=== PATIENT | male | born 1965 | race Caucasian/White ===

== ENCOUNTER → 2017-03-19 | Day surgery (SDC) | payer OTHER ==
[2017-03-18 07:49] VITALS: Ht 182.9 cm; Wt 130.9 kg
[~2017-03-19] VITALS: Ht 182.9 cm; Wt 130.9 kg
[~2017-03-19] MED LIST: 500ML BSS 0.3ML EPI 1:1000PF IRRIG ONE; ACETAMINOPHEN 325 MG TAB PO PRN; ALLO300T2 PO; AMLO-114 PO; AMVISC PLUS 0.8ML SYRINGE INT OCU ONE; ATROPINE SULFATE 0.1 MG/ML 5ML SYR IV PRN; BSS FLUSH ONE; BUPR75TA20 PO; CYCLOPENTOLATE HCL 1% OP SOLN PER DROP CHARGE OPL SCH; DOCU-94 PO; EpHEDrine SULFATE INJ 50 MG/ML AMP IV PRN; EpINEphrine INJ 1MG/ML AMP 1 MG/ML AMP ONE; GATIFLOXACIN OP SOLN PER DROP CHARGE OPL SCH; KETOROLAC 0.5% OP SOLN PER DROP CHARGE OPL SCH; LACTATED RINGER'S 1000ML 500 ML IV SCH; LIDOCAINE 3.5% OPH GEL PER APPLICATION CHARGE ONE; LIDOCAINE HCL 1% MPF 2 ML VIAL ONE; LISI20TA3 PO; MELO7.5T5 PO; METO25TA56 PO; MIDAZOLAM HCL 1 MG/ML 2ML VIAL ONE; MIRT45TA PO; OCUCOAT 1 ML SOLN IO ONE; ONDANSETRON INJ 2 MG/ML 2 ML VIAL IV PRN; OXCA300T PO; PATIENT'S ALLERGY INFO NEEDS ENTERED SCH; PHENYLEPHRINE HCL 10% OP SOLN PER DROP CHARGE OPL SCH; PHENYLEPHRINE HCL 2.5% OP SOLN PER DROP CHARGE OPL SCH; POVIDONE-IODINE OP SOLN 30 ML BTL ONE; PROPARACAINE 0.5% OP SOLN PER DROP CHARGE OPL SCH; RANI300T2 PO; TOBRAMYCIN/DEXAMETHASONE OPH OINT PER APPLN CHARGE ONE; TROPICAMIDE 1% OP SOLN PER DROP CHARGE OPL SCH
[2017-03-19] MEDS: PHENYLEPHRINE HCL 2.5% OP SOLN PER DROP CHARGE OPL SCH ×2 (10:05→10:12)
[2017-03-19] MEDS: TROPICAMIDE 1% OP SOLN PER DROP CHARGE OPL SCH ×2 (10:07→10:13)
[2017-03-19] MEDS: CYCLOPENTOLATE HCL 1% OP SOLN PER DROP CHARGE OPL SCH ×2 (10:08→10:14)
[2017-03-19] MEDS: KETOROLAC 0.5% OP SOLN PER DROP CHARGE OPL SCH ×2 (10:09→10:15)
[2017-03-19] MEDS: GATIFLOXACIN OP SOLN PER DROP CHARGE OPL SCH ×2 (10:10→10:17)
--- NOTE | 2017-03-19 11:04 | History & Physical Bridge - [place] ---
H&P Re-Evaluation Bridge Note: I have examined the patient, reviewed the History & Physical and in the interval since the performance of the History & Physical I have noted the following changes of clinical significance: No changes noted
--- NOTE | 2017-03-19 11:35 | [facility] Operative Report ---
Operative Report Date of Service Mar 19, 2017. Operative Report 1. PREOPERATIVE DIAGNOSIS: Cataract of the left eye. 2. POSTOPERATIVE DIAGNOSIS: Same. 3. PROCEDURE: Phacoemulsification with intraocular lens implantation of the left eye. SURGEON: Dr. Kunal Onofre. ANESTHESIA: Topical Lidocaine gel, 1% Non- Preserved intracameral Lidocaine, and monitored intravenous sedation. INDICATIONS FOR THE PROCEDURE: The patient is a 52 - year-old male with a history of cataract of the left eye causing significant visual impairment. The details of the proposed procedure were explained to the patient who asked appropriate questions and following discussion of all risks, benefits and alternatives agreed to have the procedure done. 4. OPERATION AND FINDINGS: DESCRIPTION OF PROCEDURE: After informed consent was obtained, the patient was brought to the Operating Room at the [facility]. The patient was placed in a supine position and then the left eye was prepped and draped in the usual sterile fashion for intraocular surgery. A drop of topical Lidocaine gel was placed in the operative eye. A wire lid speculum was then placed in the fornices. A corneal paracentesis was then created temporally. The Non-Preserved Lidocaine was then instilled into the anterior chamber. The anterior chamber was then pressurized with viscoelastic. A 2.0 mm clear corneal incision was then created temporally. A cystotome was inserted into the anterior chamber and used to create a tear in the anterior lens capsule. This capsular tear was then used to create a small flap and the flap was dragged in a counterclockwise direction in order to create a continuous curvilinear capsulorrhexis. Hydrodissection was accomplished with balanced salt solution. Phacoemulsification of the lens nucleus was then performed in a standard [id number] technique. The phaco time was 18 seconds with an average power of 11 %. The remaining cortical material was removed using irrigation aspiration. The capsular bag was then filled with viscoelastic. A Bausch & Lomb MI60L +21.5 diopters lens was then loaded into the injector and injected into the capsular bag. The remaining viscoelastic was removed with the irrigation aspiration handpiece. The wound was hydrated and then checked and found to be watertight. The intraocular pressure was checked and found to be adequate. The wire lid speculum was removed and the patient's face was cleaned and dried. TobraDex ointment was placed in the inferior fornix. The patient was discharged to the Recovery Room having tolerated the procedure well. There were no complications. The patient will be seen tomorrow in the office for follow-up. I attest to the content of the Intraoperative Record and any orders documented therein. Any exceptions are noted below.
--- NOTE | 2017-03-19 11:36 | Discharge Instructions-SurgCtr ---
Discharge Instructions Date of Service Mar 19, 2017. Visit Reason for Visit: Cataract Left Eye Discharge Discharge Diagnosis / Problem: cataract Discharge Goals Goal(s): Improve function Activity Recommendations Activity Limitations: per Instructions/Follow-up section Anesthesia . Post Anesthesia Instructions: If you have had General Anesthesia or IV Sedation: * Do not drive today. * Resume driving when surgeon permits. * Do not make important decisions or sign legal documents today. * Call surgeon for: 1. Temperature elevations greater than 101 degrees F. 2. Uncontrollable pain. 3. Excessive bleeding. 4. Persistent nausea and vomiting. 5. Medication intolerance (nausea, vomiting or rash). * For nausea and vomiting use only clear liquids such as: tea, soda, bouillon until nausea subsides, then gradually increase diet as tolerated. * If you have any concerns or questions, call your surgeon's office. If physician is unavailable and it is an emergency, call 911 or go to the nearest emergency room. . Diet Recommendations Home Diet: resume previous diet Procedures Procedures Performed: Left Cataract Phacoemulsification With Intraocular Lens Implant Pending Studies Studies pending at discharge: no Medical Emergencies . Who to Call and When: Medical Emergencies: If at any time you feel your situation is an emergency, please call 911 immediately. . Non-Emergent Contact Non-Emergency issues call your: Grinder Machine Knife Setter . . "Provider Documentation" section prepared by Kunal Onofre. .
[2017-03-19 11:42] VITALS: TEMP 36.5
--- NOTE | 2017-03-19 11:56 | Anesthesia Progress Nt - [facility] ---
Anesthesia Post Op Note Date & Time Mar 19, 2017 at 11:56 Vital Signs Pain Intensity: 0 Vital Signs Past 12 Hours Date Time Temp Pulse Resp B/P (MAP) Pulse Ox O2 Delivery O2 Flow Rate FiO2 03/19/17 11:42 36.5 59 18 100/68 (79) 95 Room Air 03/19/17 09:59 37.1 58 20 114/78 (90) 97 Room Air Notes Mental Status: alert / awake / arousable, participated in evaluation Pt Amnestic to Procedure: Yes Nausea / Vomiting: adequately controlled Pain: adequately controlled Airway Patency, RR, SpO2: stable & adequate BP & HR: stable & adequate Hydration State: stable & adequate Anesthetic Complications: no major complications apparent
[2017-03-19 12:05] VITALS: BP 119/86; PULSE 55; O2SAT 100
== END | disposition home or self-care (01) ==
LOC: X.SURG 09:42
PROVIDERS: ATTEND Ophthalmology
DX: H26.9 Unspecified cataract (principal); I10 Essential (primary) hypertension; F41.9 Anxiety disorder, unspecified; G47.33 Obstructive sleep apnea (adult) (pediatric); Z98.42 Cataract extraction status, left eye; Z98.890 Other specified postprocedural states; Z87.891 Personal history of nicotine dependence; E66.9 Obesity, unspecified; Z68.39 Body mass index [BMI] 39.0-39.9, adult

== ENCOUNTER → 2017-06-06 | Day surgery (SDC) | payer OTHER ==
[2017-06-04 14:09] VITALS: Ht 182.9 cm; Wt 130.9 kg
[~2017-06-06] VITALS: Ht 182.9 cm; Wt 130.9 kg
[~2017-06-06] MED LIST changes: +ALBUTEROL HFA 8 GM INHALER INH ONE; +BUPIVACAINE 0.5 % 5 MG/1 ML PF 10ML VIAL ONE; -CYCLOPENTOLATE HCL 1% OP SOLN PER DROP CHARGE OPL SCH; -GATIFLOXACIN OP SOLN PER DROP CHARGE OPL SCH; -KETOROLAC 0.5% OP SOLN PER DROP CHARGE OPL SCH; +LIDOCAINE HCL 2% LOCAL 20 ML VIAL ONE; -ONDANSETRON INJ 2 MG/ML 2 ML VIAL IV PRN; -PATIENT'S ALLERGY INFO NEEDS ENTERED SCH; -PHENYLEPHRINE HCL 10% OP SOLN PER DROP CHARGE OPL SCH; -PHENYLEPHRINE HCL 2.5% OP SOLN PER DROP CHARGE OPL SCH; -PROPARACAINE 0.5% OP SOLN PER DROP CHARGE OPL SCH; +PROPARACAINE 0.5% OP SOLN PER DROP CHARGE OPR SCH; +PROPOFOL IV EMULSION 10 MG/ML 20 ML VIAL IV ONE; -TROPICAMIDE 1% OP SOLN PER DROP CHARGE OPL SCH
[2017-06-06] MEDS: KETOROLAC 0.5% OP SOLN PER DROP CHARGE OPR SCH ×2 (10:39→10:45)
[2017-06-06] MEDS: CYCLOPENTOLATE HCL 1% OP SOLN PER DROP CHARGE OPR SCH ×2 (10:40→10:45)
[2017-06-06] MEDS: TROPICAMIDE 1% OP SOLN PER DROP CHARGE OPR SCH ×2 (10:40→10:45)
[2017-06-06] MEDS: PHENYLEPHRINE HCL 2.5% OP SOLN PER DROP CHARGE OPR SCH ×2 (10:40→10:44)
[2017-06-06] MEDS: PILOCARPINE HCL 2% OP SOLN PER DROP CHARGE OPR SCH ×2 (10:41→10:52)
[2017-06-06] MEDS: GATIFLOXACIN OP SOLN PER DROP CHARGE OPR SCH ×2 (10:41→10:51)
--- NOTE | 2017-06-06 10:51 | [facility] Operative Report ---
Operative Report Date of Service Jun 06, 2017. Operative Report 1. PREOPERATIVE DIAGNOSIS: Aphakia, right eye 2. POSTOPERATIVE DIAGNOSIS: Same. 3. PROCEDURE: Secondary intra-ocular lens implantation, right eye SURGEON: Dr. Kunal Onofre. ANESTHESIA: Topical Lidocaine gel, 1% Non- Preserved intracameral Lidocaine, an retro bulbar block consisting of 2% lidocaine mixed equally with 0.5% bupivacaine, and monitored intravenous sedation. 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 The details of the proposed procedure were explained to the patient who asked appropriate questions and following discussion of all risks, benefits and alternatives agreed to have the procedure done. 4. OPERATION AND FINDINGS: DESCRIPTION OF PROCEDURE: After informed consent was obtained, the patient was brought to the Operating Room at the [facility]. The patient was placed in a supine position and then the right eye was prepped and draped in the usual sterile fashion for intraocular surgery. A drop of topical Lidocaine gel was placed in the operative eye. The above described retrobulbar block was injected behind the right eye. A wire lid speculum was then placed in the fornices. A corneal paracentesis was then created temporally. The Non- Preserved Lidocaine was then instilled into the anterior chamber. The anterior chamber was then pressurized with viscoelastic. A 6.0 mm clear corneal incision was then created temporally. A peripheral iridotomy was created superiorly with the 20 gauge vitrector. Over a sheetz glide the Bausch and Lomb [id number] +17.0 was inserted into the anterior chamber. The wound was closed with 3 10-0 nylon sutures. The knots were buried. The remaining viscoelastic was removed with the irrigation aspiration handpiece. The wound was hydrated and then checked and found to be watertight. The intraocular pressure was checked and found to be adequate. The wire lid speculum was removed and the patient's face was cleaned and dried. TobraDex ointment was placed in the inferior fornix and a pressure patch was applied. The patient was discharged to the Recovery Room having tolerated the procedure well. There were no complications. The patient will be seen tomorrow in the office for follow-up. I attest to the content of the Intraoperative Record and any orders documented therein. Any exceptions are noted below.
[2017-06-06 12:18] VITALS: TEMP 36.3
--- NOTE | 2017-06-06 12:18 | Discharge Instructions-SurgCtr ---
Discharge Instructions Date of Service Jun 06, 2017. Visit Reason for Visit: Cataract Right Eye Discharge Discharge Diagnosis / Problem: aphakia Discharge Goals Goal(s): Improve function Activity Recommendations Activity Limitations: per Instructions/Follow-up section Anesthesia . Post Anesthesia Instructions: If you have had General Anesthesia or IV Sedation: * Do not drive today. * Resume driving when surgeon permits. * Do not make important decisions or sign legal documents today. * Call surgeon for: 1. Temperature elevations greater than 101 degrees F. 2. Uncontrollable pain. 3. Excessive bleeding. 4. Persistent nausea and vomiting. 5. Medication intolerance (nausea, vomiting or rash). * For nausea and vomiting use only clear liquids such as: tea, soda, bouillon until nausea subsides, then gradually increase diet as tolerated. * If you have any concerns or questions, call your surgeon's office. If physician is unavailable and it is an emergency, call 911 or go to the nearest emergency room. . Diet Recommendations Home Diet: resume previous diet Procedures Procedures Performed: Right Eye Secondary Lens Implant Pending Studies Studies pending at discharge: no Medical Emergencies . Who to Call and When: Medical Emergencies: If at any time you feel your situation is an emergency, please call 911 immediately. . Non-Emergent Contact Non-Emergency issues call your: Sign Erector . . "Provider Documentation" section prepared by Kunal Onofre. .
[2017-06-06 12:38] VITALS: BP 142/99; PULSE 60; O2SAT 96
--- NOTE | 2017-06-06 12:43 | Anesthesiology Progress Note ---
Anesthesia Post Op Note Date & Time Jun 06, 2017 at 12:43 Vital Signs Pain Intensity: 0 Vital Signs Past 12 Hours Date Time Temp Pulse Resp B/P (MAP) Pulse Ox O2 Delivery O2 Flow Rate FiO2 06/06/17 12:38 60 16 142/99 (113) 96 06/06/17 12:18 36.3 57 14 138/95 (109) 99 Room Air 06/06/17 10:35 36.5 59 20 125/85 (98) 96 Room Air Notes Mental Status: alert / awake / arousable, participated in evaluation Nausea / Vomiting: adequately controlled Pain: adequately controlled Airway Patency, RR, SpO2: stable & adequate BP & HR: stable & adequate Hydration State: stable & adequate Anesthetic Complications: no major complications apparent
== END | disposition home or self-care (01) ==
LOC: X.SURG 08:40
PROVIDERS: ATTEND Ophthalmology
DX: H27.01 Aphakia, right eye (principal); H26.9 Unspecified cataract; I10 Essential (primary) hypertension; K21.9 Gastro-esophageal reflux disease without esophagitis; E66.9 Obesity, unspecified; Z87.891 Personal history of nicotine dependence; Z98.42 Cataract extraction status, left eye; Z88.8 Allergy status to other drugs, medicaments and biological substances; G47.33 Obstructive sleep apnea (adult) (pediatric)

== ENCOUNTER 2018-09-10 05:05 | Inpatient (IN) ==
--- NOTE | 2018-09-04 09:36 | History & Physical Report ---
Date of Service September 04, 2018 Assessment & Plan (1) Osteoarthritis of right hip: Schedule Right UNRULY for 09.10.18. All potential risks, benefits, complications, alternatives, and rehab have been discussed with the patient and he wishes to proceed. Plan for ASA 81 mg BID x 4 wks post op for DVT prophylaxis. Will return to [facility] after discharge. History of Present Illness Chief Complaint: right hip pain Primary Care Provider: [facility] This is a patient who is an inmate at [facility]. He has been treated conservatively for right hip DJD for a long period of time. He has failed all conservative management and is now being set up for a right UNRULY. Allergies Allergy/AdvReac Type Severity Reaction Status Date / Time blue dye Allergy Unknown UNKNOWN? Verified 06/06/17 10:32 duloxetine Allergy Unknown UNKNOWN? Verified 06/06/17 10:32 Home Medications Home Medications Medication Instructions Recorded Confirmed Type allopurinol 300 mg PO DAILY 06/06/18 06/06/18 History amlodipine 10 mg PO DAILY 06/06/18 06/06/18 History bupropion HCl 2 tab PO BID 06/06/18 06/06/18 History cetirizine 10 mg PO DAILY 06/06/18 06/06/18 History docusate sodium 100 mg PO DAILY 06/06/18 06/06/18 History lisinopril 20 mg PO DAILY 06/06/18 06/06/18 History metoprolol tartrate 25 mg PO DAILY 06/06/18 06/06/18 History mirtazapine 30 mg PO HS 06/06/18 06/06/18 History nabumetone 750 mg PO BID 06/06/18 06/06/18 History oxcarbazepine 300 mg PO HS 06/06/18 06/06/18 History ranitidine HCl 300 mg PO BID 06/06/18 06/06/18 History Past Med/Surg History Social History Current Living Situation Comment: [facility] Smoking Status: Unknown if ever smoked Physical Exam Constitutional: well developed and well nourished; no acute distress ENMT: external ear and nose normal, oropharynx normal Neck: trachea midline, no thyromegaly Respiratory: normal respiratory effort, lungs clear to auscultation Cardiovascular: Rate/Rhythm: regular rate and regular rhythm Gastrointestinal (Abdomen): normal bowel sounds, soft, nontender, no hepatosplenomegaly Musculoskeletal: Hip: + limited ROM of hip (right hip: internal/external rotation/flexion), + joint line tenderness (right groin) and + DEE test positive (right hip); no deformity, no skin erythema and no ecchymosis Skin: no rashes, warm and dry Neurologic: normal touch/pain/proprioception Psychiatric: A+Ox3, euthymic affect Lymphatic: no cervical or axillary lymphadenopathy
--- NOTE | 2018-09-05 14:46 | Anesthesiology Consultation ---
Date of Service September 05, 2018 Assessment & Plan (1) Encounter for pre-operative examination: Pre-op labs not completed. Surgeon's office made aware that if not done by DOS will be drawn AM DOS, and based on results anesthesia will determine if appropriate to proceed. Chart Review Chart Review: Acceptable Risk for Surgery (pending labs WNL AM DOS) and Patient NOT seen in Pre Admission Testing History Surgery Operation Date: 07/03/18 09:40 Proposed Procedures p Right Total Hip Arthroplasty - Eh Odonnell MD Operation Date: 09/10/18 07:30 Proposed Procedures p Right Total Hip Arthroplasty - Cabrera Lopez DO Height/Weight Height: 6 ft Weight: 113.398 kg Allergies Allergy/AdvReac Type Severity Reaction Status Date / Time blue dye Allergy Unknown UNKNOWN? Verified 06/06/17 10:32 duloxetine Allergy Unknown UNKNOWN? Verified 06/06/17 10:32 Medications Home Medications Medication Instructions Recorded Confirmed Last Taken allopurinol 300 mg PO DAILY 06/06/18 09/05/18 Unknown amlodipine 10 mg PO DAILY 06/06/18 09/05/18 Unknown bupropion HCl 2 tab PO BID 06/06/18 09/05/18 Unknown cetirizine 10 mg PO DAILY 06/06/18 09/05/18 Unknown docusate sodium 100 mg PO DAILY 06/06/18 09/05/18 Unknown lisinopril 20 mg PO DAILY 06/06/18 09/05/18 Unknown metoprolol tartrate 25 mg PO DAILY 06/06/18 09/05/18 Unknown mirtazapine 30 mg PO HS 06/06/18 09/05/18 Unknown nabumetone 750 mg PO BID 06/06/18 09/05/18 Unknown oxcarbazepine 300 mg PO HS 06/06/18 09/05/18 Unknown ranitidine HCl 300 mg PO BID 06/06/18 09/05/18 Unknown Past Medical History Medical History Alcohol related disorder Amphetamine abuse Cataract Chronic back pain LOW BACK PAIN GERD (gastroesophageal reflux disease) Hypertension Osteoarthritis Post traumatic stress disorder Rhinitis Past Surgical History Surgical History History of eye surgery 2005 Social History Smoking Status: Current some day smoker tobacco type: cigarettes Smoking cigarettes per day: 10 CIG DAILY Testing Electrocardiogram Date: 09/03/18 Findings: + NSR @ (84bpm) RBBB. Chest X-Ray Date: 09/04/18 Findings: + NAD
[2018-09-10 05:59] LABS: Basophils # (auto) 0.04 K/uL (0-0.2); Basophils % (auto) 0.7 %; Eosinophils # (auto) 0.21 K/uL (0-0.5); Eosinophils % (auto) 3.6 %; Hematocrit (blood only) 41.2 % (42-52); Hemoglobin 13.6 g/dL (14.0-18.0); Immature Granulocytes # (auto) 0.03 K/uL (0.00-0.02); Immature Granulocytes % (auto) 0.5 %; Lymphocytes # (auto) 1.93 K/uL (1.2-3.4); Lymphocytes % (auto) 32.9 %; Mean Corpuscular Volume 89.8 fL (80-100); Mean Platelet Volume 8.9 fL (7.4-10.4); Monocytes % (auto) 15.3 %; Neutrophils # (auto) 2.76 K/uL (1.4-6.5); Platelet Count 229 K/uL (130-400); RDW Coefficient of Variation 13.8 % (11.5-14.5); RDW Standard Deviation 45.1 fL (36.4-46.3); Red Blood Count 4.59 M/uL (4.7-6.1); White Blood Count 5.87 K/uL (4.8-10.8)
[2018-09-10] MEDS ORDERED: dexAMETHasone 4 MG TAB PO SCH (06:00)
[2018-09-10] MEDS ORDERED: CeleBREX 200 MG CAP PO SCH (06:00)
[2018-09-10] MEDS ORDERED: LR 15ML/HR IV SCH (06:00)
[2018-09-10] MEDS ORDERED: GABAPENTIN 900 MG DOSE PO SCH (06:00)
[2018-09-10] MEDS ORDERED: CEFAZOLIN 3000MG 72.5 ML IV SCH (06:00)
[2018-09-10] MEDS ORDERED: ACETAMINOPHEN 500 MG TAB PO SCH (06:00)
[2018-09-10] MEDS ORDERED: METOCLOPRAMIDE HCL 10 MG TABLET PO SCH (06:00)
[2018-09-10] MEDS ORDERED: FAMOTIDINE 20 MG TAB PO SCH (06:00)
[2018-09-10] MEDS ORDERED: ROPIVACAINE 0.5% HCL/PF 150 MG, BUPIVACAINE 0.5% MPF 30 ML, EPINEPHrine 30MG/30ML (OR U... INFIL SCH (06:00)
[2018-09-10 06:11] LABS: Partial Thromboplastin Ratio 0.9; Partial Thromboplastin Time 24.4 Seconds (21.0-31.0); Prothrombin Time 10.4 Seconds (9.0-12.0)
[2018-09-10 06:15] LABS: BUN Creatinine Ratio 16.4 (10-20); Calcium 8.9 mg/dl (8.5-10.1); Creatinine Clr Calc Pharmacy 104.2 ml/min; Est GFR (African American) 87.4; Est GFR (Non-African American) 75.4; Potassium 4.8 mmol/L (3.5-5.1)
[2018-09-10] MEDS ORDERED: BUPIVACAINE 0.5 % 5 MG/1 ML PF 10ML VIAL ONE (06:21)
[2018-09-10 06:26] LABS: Estimated Average Glucose 105 mg/dl; Hemoglobin A1C 5.3 % (4.5-5.6)
[2018-09-10] MEDS ORDERED: LIDOCAINE HCL 2% 2 ML VIAL/AMP(20MG/ML) INFIL ONE (07:08)
[2018-09-10] MEDS ORDERED: ONDANSETRON INJ 2 MG/ML 2 ML VIAL ONE (07:08)
[2018-09-10] MEDS ORDERED: DEXAMETHASONE SOD INJ 4 MG/ML VIAL ONE (07:08)
[2018-09-10] MEDS ORDERED: PROPOFOL IV EMULSION 10 MG/ML 20 ML VIAL IV ONE (07:08)
[2018-09-10] MEDS ORDERED: fentaNYL citrate 100 MCG/2 ML VIAL ONE ×3 (07:09→11:23)
[2018-09-10] MEDS ORDERED: MIDAZOLAM HCL 1 MG/ML 2ML VIAL ONE (07:09)
[2018-09-10] MEDS ORDERED: ORTHO JOINT ANESTHETIC ONE (07:23)
[2018-09-10] MEDS ORDERED: BACITRACIN INJ 50,000 UNIT VIAL ONE (07:23)
--- NOTE | 2018-09-10 07:41 | History & Physical Bridge Note ---
Date of Service September 10, 2018 History & Physical Bridge Note I have examined the patient, reviewed the History & Physical and in the interval since the performance of the History & Physical I have noted the following changes of clinical significance: no changes noted
[2018-09-10] MEDS ORDERED: HYDROmorphone INJ 2 MG/ML SYR/VIAL ONE (08:35)
[2018-09-10] MEDS ORDERED: METOPROLOL TARTRATE 1 MG/ML VIAL IV ONE (08:55)
[2018-09-10] MEDS ORDERED: HydrALAZINE HCL 20 MG/ML VIAL ONE (09:09)
[2018-09-10] MEDS ORDERED: NEOSTIGMINE METHYLSULFATE 5 MG/5 ML SYR ONE (09:23)
[2018-09-10] MEDS ORDERED: SUCCINYLCHOLINE CHLORIDE 20 MG/ML 10 ML VIAL ONE (09:23)
[2018-09-10] MEDS ORDERED: ROCURONIUM BROMIDE 10 MG/ML 5 ML VIAL ONE (09:23)
[2018-09-10] MEDS ORDERED: GLYCOPYRROLATE 0.2 MG/ML VIAL ONE (09:23)
[2018-09-10] MEDS ORDERED: ePHEDrine sulfate 50 MG/ML AMP IV PRN (10:47)
[2018-09-10] MEDS ORDERED: PROMETHAZINE HCL 12.5 MG in SODIUM CHLORIDE 0.9% 50 ML IV PRN (10:47)
[2018-09-10] MEDS ORDERED: FLUMAZENIL 0.1 MG/1 ML 10 ML VIAL IV PRN (10:47)
[2018-09-10] MEDS ORDERED: ONDANSETRON INJ 2 MG/ML 2 ML VIAL IV PRN (10:47)
[2018-09-10] MEDS ORDERED: ATROPINE SULFATE 0.1 MG/ML 10ML SYR IV PRN (10:47)
[2018-09-10] MEDS ORDERED: NALOXONE HCL 0.4 MG/1 ML VIAL/CARP IV PRN ×2 (10:47→13:20)
[2018-09-10] MEDS ORDERED: LABETALOL HCL IV 5 MG/ML 20ML IV PRN (10:47)
--- NOTE | 2018-09-10 11:32 | Post Operative Brief Note ---
Immediate Post Op Note v1 Date of Surgery September 10, 2018 Pre & Post Diagnosis Operation Date: 07/03/18 09:40 <No data on this case meets the specified criteria> Operation Date: 09/10/18 07:30 Pre-Op Diagnosis: Right hip degenerative joint disease, right hip osteoarthritis Post-Op Diagnosis: Right hip degenerative joint disease, right hip osteoarthritis Procedure Operation Date: 07/03/18 09:40 <No data on this case meets the specified criteria> Operation Date: 09/10/18 07:30 Actual Procedures p Right Total Hip Arthroplasty(Right) - Cabrera Lopez DO Surgeon Cabrera Lopez DO Hearing Impaired Teacher None Estimated Blood Loss 50 Findings Consistent with Post-Op Diagnosis Specimens Bone and tissue right hip spinal Drains Hemovac Drain (10fr) Anesthesia Type Spinal MAC Complications none Disposition Accompanied Patient To Recovery: Yes Disposition: Recovery Room
[2018-09-10] MEDS ORDERED: HYDROmorphone INJ 1 MG/ML SYRINGE ONE (11:34)
[2018-09-10] MEDS: HYDROmorphone INJ 1 MG/ML SYRINGE IV PRN ×4 (11:36→12:25)
--- NOTE | 2018-09-10 11:59 | XRay Report ---
XR hip 1V RT w pelvis CLINICAL HISTORY: IN PACU - A/P PELVIS and LATERAL HIP COMPARISON: None. DISCUSSION: Anatomic alignment posttotal right hip arthroplasty. Could contact between metallic prost hetic in an Bone. No evidence for acetabular protrusion. IMPRESSION: Anatomic alignment posttotal right hip arthroplasty. The above report was generated using voice recognition software. It may contain grammatical, syntax or spelling errors. Electronically signed by: Preston Blackwell M.D. 09/10/2018 11:58 AM
--- NOTE | 2018-09-10 12:14 | Anesthesiology Progress Note ---
Date of Service September 10, 2018 Anesthesia Post Procedure Vital Signs Vital Signs: Temp Pulse Pulse Resp BP Pulse Ox 09/10/18 12:00 87 16 165/88 H 100 09/10/18 11:50 59 L 18 141/78 H 100 09/10/18 11:40 64 16 127/90 100 09/10/18 11:30 36 C L 94 H 16 170/122 H 100 09/10/18 05:47 36.6 C 53 L 18 145/107 H 97 Pain Intensity Right Hip: Pain Intensity: 5 Transfer of Care Handoff Completed per policy Notes Mental Status: alert / awake / arousable Patient Amnestic to Procedure: Yes Nausea / Vomiting: adequately controlled Pain: adequately controlled Airway Patency, RR, SpO2: stable & adequate BP & HR: stable & adequate Hydration State: stable & adequate Anesthetic Complications: no major complications apparent
[2018-09-10] MEDS ORDERED: BISACODYL 10 MG SUPP PR PRN (13:20)
[2018-09-10] MEDS ORDERED: MAGNESIUM HYDROXIDE SUSP 30 ML UDC PO PRN (13:20)
[2018-09-10] MEDS ORDERED: ALUMINUM/MAGNESIUM SUSP 30 ML UDC PO PRN (13:20)
[2018-09-10] MEDS: ACETAMINOPHEN 500 MG TAB PO SCH ×2 (13:40→20:22)
[2018-09-10] MEDS: SODIUM CHLORIDE 0.9% 1000ML 1,000 ML IV SCH ×2 (13:41→23:43)
--- NOTE | 2018-09-10 14:08 | Consultation ---
Date of Consultation September 10, 2018 Assessment & Plan (1) Osteoarthritis of right hip: POD #[address] Lopez EBL 50ml tolerated procedure well pain/wound per ortho activities and therapy as directed by ortho incentive spirometry follow h/h (2) Hypertension: blood pressure stable continue metoprolol, lisinopril, amlodipine (3) GERD (gastroesophageal reflux disease): continue ranitidine (4) Chronic back pain: continue nambuetone (5) Post traumatic stress disorder: continue wellbutrin, remeron mood stable (6) DVT prophylaxis: SCDS, TEDS, ASA BID per ortho Disposition: per primary Follow up: Provider at [facility] upon discharge Patient was seen and examined in collaboration with Dr. Jackson, please see addendum Starting 09/11/18 patient will be under the care of Dr. Cummings Thank you for this consultation. We will follow the patient with you during their hospital stay. You can reach a member of the [facility] Team 17/09 via pager @ [phone]. Supervising Physician Co-Signing Physician Notes I, Dr. Elder Jackson, have seen and examined the patient with physician logistics assistant and agree with the assessment and plan as above and would like to comment that This is a 53 year old male with Right Total Hip Arthroplasty on 09/10/18 from orthopedic service for PREOPERATIVE DIAGNOSES of Right hip degenerative joint disease and Right hip osteoarthritis. medicine consulted for medical management as consulting service On exam General: patient comfortable and eating lunch Lungs: clear to auscultation bilaterally Heart: regular rate, and rhythm Abdomen: soft, nontender, bowel sounds present Hip: right hip wound vac draining serosangunious fluids Legs: in SCDs , able to wiggle toes bilaterally blood pressure noted to be high after the surgery, will expect blood pressure to come down during the day when further removed from anesthesia. continue metoprolol, lisinopril, amlodipine for blood pressure control My colleague Dr. Cummings will be following the patient as medicine consult starting on 09/11/18 History of Present Illness Requesting Physician: Dr. Loepz Reason for Consultation: Postop medical management Attending Physician: Cabrera Lopez, DO History of Present Illness This is a 53-year-old male incarcerated at [facility] who has a significant PMH of HTN, Gout, GERD, OADJD, Chronic back pain, PTSD who presents to [facility] for elective R UNRULY by Dr. Lopez. Pt tolerated procedure well. 2 guards at bedside. Complaining of incision hip discomfort. Denies any Dizziness, syncope, f/c/s, chest pain, sob, palpitations, cough, n/v/d, abdominal pain, dysuria, hematuria, increased urg/freq with urination. Had fluid post op but not solid food. Denies post op N/V. Offers no complaints or concerns. Allergies Allergy/AdvReac Type Severity Reaction Status Date / Time blue dye Allergy Unknown UNKNOWN? Verified 09/10/18 05:34 duloxetine Allergy Unknown UNKNOWN? Verified 09/10/18 05:34 Home Medications Home Medications Medication Instructions Recorded Confirmed Type allopurinol 300 mg PO DAILY 06/06/18 09/05/18 History amlodipine 10 mg PO DAILY 06/06/18 09/05/18 History bupropion HCl 2 tab PO BID 06/06/18 09/05/18 History cetirizine 10 mg PO DAILY 06/06/18 09/05/18 History docusate sodium 100 mg PO DAILY 06/06/18 09/05/18 History lisinopril 20 mg PO DAILY 06/06/18 09/05/18 History metoprolol tartrate 25 mg PO DAILY 06/06/18 09/05/18 History mirtazapine 30 mg PO HS 06/06/18 09/05/18 History nabumetone 750 mg PO BID 06/06/18 09/05/18 History ranitidine HCl 300 mg PO BID 06/06/18 09/05/18 History Patient History Medical History Amphetamine abuse Alcohol related disorder Post traumatic stress disorder Cataract Hypertension GERD (gastroesophageal reflux disease) Chronic back pain LOW BACK PAIN Rhinitis Osteoarthritis Surgical History History of eye surgery 2006 Family History Mother Cancer Throat Father Hypertension Social History Preferred Language: Belarusian Communication Ability: Effective marital status: Unknown Current Living Situation: Other Current Living Situation Comment: [facility] Smoking Status: Former smoker Tobacco Type: cigarettes Hx Alcohol Use: Yes Alcohol type: beer Alcohol Intake Frequency Comment: hx of ETOH ABUSE prior to alf Hx Substance Use: No Review of Systems Review of Systems: As noted per HPI, 10 systems reviewed and negative unless noted above. Physical Exam Physical Exam: Gen: WD/WN, M, obese,, NAD, sitting up in bed, pleasant, conversing easily Head: Normocephalic, Atraumatic Eyes: Sclera normal, no conjunctival injection, PERRLA, EOMI ENT: Gross hearing intact, normal pharynx, mucous membranes moist Neck: supple, no adenopathy, No JVD, no bruit, Resp: Clear to auscultation b/l, no wheeze, rales, rhonchi. Normal insp/exp effort, no accessory muscle use CV: Regular rate, regular rhythm, no murmur, rub, gallop, or ectopy Abd: obese abd, +BS x 4, soft, nontender, nondistended Musculoskeletal: moves extremities active rom x 3, RLE not assessed given UNRULY, strength intact, good qa tech strength Extremities: trace edema bilaterally, SCDS/TEDS in place Skin: warm, moist, no rash, negative turgor, cap refill < 2sec Neuro: Alert and oriented x 3, speech normal, good mood/affect, cran nerve 2-12 intact grossly : deferred Results & Data Vital Signs (Past 12 Hours) Vital Signs Temp Pulse Pulse Resp BP Pulse Ox 09/10/18 13:00 61 14 135/75 97 09/10/18 12:45 62 16 160/73 H 98 09/10/18 12:40 58 L 19 130/73 93 09/10/18 12:30 36.7 C 58 L 14 128/98 94 09/10/18 12:20 61 14 135/95 98 09/10/18 12:10 59 L 16 135/79 93 09/10/18 12:00 87 16 165/88 H 94 09/10/18 11:50 59 L 18 141/78 H 100 09/10/18 11:40 64 16 127/90 100 09/10/18 11:30 36 C L 94 H 16 170/122 H 100 09/10/18 05:47 36.6 C 53 L 18 145/107 H 97 Laboratory Results Pre op Labs: H/H 13.6 and 41.2, PLT 229 A1C 5.3 BMP: Na 143, K 4.3, BUN 18, Cr 1.11, glucose 92 Diagnostic Findings R Hip Xray: IMPRESSION: Anatomic alignment posttotal right hip arthroplasty. ECG Rate (beats per minute): 84 Rhythm: normal sinus Findings: + RBBB
--- NOTE | 2018-09-10 14:26 | Operative Report ---
DATE OF OPERATION: 09/10/2018 PREOPERATIVE DIAGNOSES: 1. Right hip degenerative joint disease. 2. Right hip osteoarthritis. POSTOPERATIVE DIAGNOSES: 1. Right hip degenerative joint disease. 2. Right hip osteoarthritis. PROCEDURES: Right total hip arthroplasty using a Hitchins Accolade II, 132-degree neck size #6 stem with a Trident X3 10-degree polyethylene insert, 36 mm inner diameter, Trident PSL DAWN cluster acetabular shell, size 62 mm, two 6.5 mm locking screws and a Biolox delta ceramic femoral head measuring 36 mm x 0 mm neck length. SURGEON: Cabrera Lopez DO SEMICONDUCTOR PROCESSING TECHNICIAN: None. ANESTHESIA: Spinal monitored anesthesia care with local. SPECIMENS: Bone and tissue, right hip. DRAINS: Hemovac x2. COMPLICATIONS: None. BLOOD LOSS: 50 mL. PERTINENT HISTORY: This is a 53-year-old alf inmate with severe chronic and worsening right hip pain. He attempted and failed conservative management for the last 2 years with modification of activities, anti-inflammatories, physician directed home exercises, physical therapy and use of an assistive device. Radiographs demonstrate complete bone on bone arthropathy with marginal osteophytes, subchondral sclerosis and subchondral cysts. The patient then scheduled for surgery as indicated. DESCRIPTION OF PROCEDURE: The patient was taken to the operating suite and placed supine on the Operating Room table after identification of the consent and identification of the proper operative site the patient was sedated. The patient had previously received a spinal epidural anesthetic. The patient was then placed in the left lateral decubitus position with the affected side up and Stulberg positioning device then used to maintain lateral position of the patient. All bony prominences were properly padded and protected. Axillary roll was placed as standard and the leg lengths were determined to be essentially equal and then the right hip was then sterilely prepped and draped in the usual fashion. 10-blade scalpel incision was made laterally over the greater trochanter. The incision was deepened through the subcutaneous tissue and meticulous hemostasis with electrocautery. Further deepening of the wound through the layer of the fascia was performed with electrocautery and iliotibial band was then incised with electrocautery. Next, Charnley retractor was placed bother anteriorly and posteriorly at the level of the gluteus tendon. Next, electrocautery was used to make an incision in the vastus lateralis and then sweep was made toward the anterior aspect of the patient along the course of the femoral neck and head. Abductor split was then completed. The gluteus minimus and capsule were then incised and then soft tissue was dissected anteriorly. Next as the soft tissue was dissected anteriorly the lesser trochanter was clearly identified and hip was dislocated with relative ease. Hypertrophic osteophytes were noted circumferentially. The hip joint was noted to be noticeably tight. Next the sagittal saw was used to resect the proximal portion of the femoral neck and head approximately one fingerbreadth proximal to the lesser trochanter. Head was then removed and next the labrum was excised from the acetabulum with a 27 blade scalpel and long forceps. Next the wound was irrigated with pulsatile lavage and the pulvinar was then excised from the acetabulum. Appropriate retractors were placed anteriorly superiorly and posteriorly. Next initial acetabular reamer was placed 44 mm medialized to the medial wall and then sequential reaming was performed to size 56 mm. Trial cage was then placed and noted to be stable with excellent fit. Next the wound was irrigated with pulsatile lavage with bacitracin additive and 62 mm Hitchins trident PSL cup was impacted and then two 6.5 mm screws were used to stabilize the acetabular shell. Next X3 poly 36 mm was impacted into the shell. Lap sponge was placed over to protect it. Next, attention was turned toward the proximal femur. Box osteotome was used to resect proximal portion of bone followed by first pass small reamer. Next, sequential broaching was performed up to size 6 and the 6 trial was placed followed by +0 36 mm trial head. Next, it was reduced and had excellent fit and feel with minimal shuck and excellent stability in all planes and range of motion. Leg lengths were restored and next all trial implants were removed. The wound was copiously irrigated with pulsatile lavage and size 6 Accolade TMZF x 132 degree final stem was impacted. Next, Biolox ceramic 36 mm head +0 neck was impacted. The construct was reduced. Range of motion was performed and noted to be completely stable with excellent range of motion, improved to greater degree than prior to surgery. Two 10 Belgian single Hemovac drains were placed exiting anterolaterally. Wound was irrigated with pulsatile lavage. Next a #5 Fiberwire suture was used to close the capsule and gluteus minimum via two small bone gunnels made with 2.4 mm drill bit in the greater trochanter. After Tycron closure was completed and noted to be stable then 10 Belgian drains were placed followed by closure of the vastus lateralis and the gluteus medius. Dilute sterile betadine was used to soak the incision for 3 minutes and was suctione and lavaged until clear. Local Orthomix was injected throughout the hip joint capsule. This was closed with #1 Vicryl sutures. Next, the iliotibial band was closed using interrupted [id number] #1 Vicryl sutures. Next, final irrigation was performed with pulsatile lavage and dermis was closed using buried interrupted 2-0 Vicryl suture. The skin was closed with skin renia. Sterile compressive dressing was applied. The patient was then placed supine and taken to recovery in stable condition. I attest to the content of the Intraoperative Record and any orders documented therein. Any exceptions are noted below. CARLOZ
[2018-09-10] MEDS: OXYCODONE HCL IR 5 MG TAB (IMMEDIATE RELEASE) PO PRN ×2 (15:53→20:20)
[2018-09-10] MEDS: CEFAZOLIN 2000MG 2,000 MG/15 ML SYR IV SCH ×2 (15:54→23:43)
[2018-09-10] MEDS: HYDROmorphone INJ 0.5 MG/0.5 ML SYR IV PRN ×2 (17:50→22:08)
[2018-09-10] MEDS: buPROPion HCl 75 MG TABLET PO SCH (20:22)
[2018-09-10] MEDS: ASPIRIN 81 MG ECTAB PO SCH (20:22)
[2018-09-10] MEDS: MIRTAZAPINE TAB 15 MG TAB PO SCH (20:22)
[2018-09-10] MEDS: SENNA 8.6 MG TAB PO SCH (20:23)
[2018-09-10] MEDS: DOCUSATE SODIUM 100 MG CAP PO SCH (20:23)
[2018-09-10] MEDS ORDERED: OXcarbazepine 150 MG TABLET PO SCH (21:00)
[2018-09-11] MEDS: OXYCODONE HCL IR 5 MG TAB (IMMEDIATE RELEASE) PO PRN ×5 (03:24→20:40)
[2018-09-11] MEDS: ACETAMINOPHEN 500 MG TAB PO SCH ×3 (05:29→20:41)
[2018-09-11] MEDS: HYDROmorphone INJ 0.5 MG/0.5 ML SYR IV PRN ×4 (05:33→23:53)
[2018-09-11] MEDS: ALLOPURINOL 300 MG TAB PO SCH ×2 (08:49→08:57)
[2018-09-11] MEDS: MULTIVITAMIN TAB PO SCH (08:49)
[2018-09-11] MEDS: DOCUSATE SODIUM 100 MG CAP PO SCH ×2 (08:50→20:42)
[2018-09-11] MEDS: AMLODIPINE BESYLATE 5 MG TAB PO SCH (08:50)
[2018-09-11] MEDS: ASPIRIN 81 MG ECTAB PO SCH ×2 (08:50→20:42)
[2018-09-11] MEDS: METOPROLOL TARTRATE 25 MG TAB PO SCH (08:50)
[2018-09-11] MEDS: LISINOPRIL 20 MG TAB PO SCH (08:51)
[2018-09-11] MEDS: CETIRIZINE HCL 10 MG TABLET PO SCH (08:51)
[2018-09-11] MEDS: buPROPion HCl 75 MG TABLET PO SCH ×2 (08:51→20:42)
[2018-09-11 08:53] LABS: Basophils # (auto) 0.01 K/uL (0-0.2); Basophils % (auto) 0.1 %; Eosinophils # (auto) 0.02 K/uL (0-0.5); Eosinophils % (auto) 0.2 %; Hematocrit (blood only) 33.6 % (42-52); Hemoglobin 11.2 g/dL (14.0-18.0); Immature Granulocytes # (auto) 0.04 K/uL (0.00-0.02); Immature Granulocytes % (auto) 0.4 %; Lymphocytes # (auto) 2.03 K/uL (1.2-3.4); Lymphocytes % (auto) 18.9 %; Mean Corpuscular Hgb Conc 33.3 g/dL (32-36); Mean Corpuscular Volume 88.4 fL (80-100); Mean Platelet Volume 9.1 fL (7.4-10.4); Monocytes # (auto) 1.99 K/uL (0.11-0.59); Monocytes % (auto) 18.5 %; Neutrophils # (auto) 6.65 K/uL (1.4-6.5); Neutrophils % (auto) 61.9 %; Platelet Count 234 K/uL (130-400); RDW Coefficient of Variation 13.7 % (11.5-14.5); RDW Standard Deviation 44.7 fL (36.4-46.3); White Blood Count 10.74 K/uL (4.8-10.8)
[2018-09-11 09:24] LABS: BUN Creatinine Ratio 16.3 (10-20); Calcium 8.4 mg/dl (8.5-10.1); Creatinine Clr Calc Pharmacy 113.4 ml/min; Est GFR (African American) 96.8; Est GFR (Non-African American) 83.5; Potassium 4.2 mmol/L (3.5-5.1)
--- NOTE | 2018-09-11 10:31 | Hospitalist Progress Note ---
Date of Service September 11, 2018 Assessment & Plan (1) Osteoarthritis of right hip: POD #[address] Lopez EBL 50ml tolerated procedure well pain/wound per ortho activities and therapy as directed by ortho incentive spirometry continue to follow h/h--yesterday 13.6/41.2 , this morning 11.2/33.6, will continue to monitor (2) Hypertension: blood pressure stable continue metoprolol, lisinopril, amlodipine (3) GERD (gastroesophageal reflux disease): continue ranitidine (4) Chronic back pain: continue nabumetone (5) Post traumatic stress disorder: continue wellbutrin, remeron mood stable (6) DVT prophylaxis: SCDS, TEDS, ASA BID per ortho Disposition: per primary Follow up: Provider at [facility] upon discharge Patient was seen and examined in collaboration with Dr. Cummings, please see addendum We will continue to follow the patient with you during their hospital stay. You can reach a member of the [facility] Hospitalist Team 17/09 via pager @ [phone]. Supervising Physician Co-Signing Physician Notes I have seen and examined the patient and have discussed the case with the provider above. I agree with the assessment and plan as stated. On my exam he states his post-op pain is controlled with medications. He is eating. He is in NAD, S1/2 heard without m/g/r, lungs were CTAB. R hip with bandage covering operative site which was c/d/i. Hemovac drain had been removed earlier today. Cont supportive care. Received lisinopril and subsequent blood pressures were on the low side. However, would cont this tomorrow as BP will start to rise again. DO Emiliano Subjective 53 yo M who is incarcerated at [facility]-- POD #[address] Lopez with PMH of HTN, Gout, GERD, OADJD, Chronic back pain, PTSD. Seen today in follow up consultation-- pt's BP was elevated yesterday post op but has been within normal range and stable since last evening ( 122/79, 119/70, 127/80). Pt has talbot catheter in place, good urine output, he has not had a bowel movement yet but is passing gas regularly. He is able to eat and drink without difficulty. He notes that he feels a bit weak and dizzy intermittently but overall that passes quickly once he is resting-- he attributes this to "having to use muscles I normally don't use to hold up my overweight body". He reports some pain of R hip and leg but denies numbness, tingling. Prior to my evaluation he was working with PT and was able to ambulate with the walker and assistance up and down the vega. Pt has been using incentive spirometer roughly once every 2 hours. He denies chest pain, SOB, cough, fevers, chills, palpitations, cough, n/v/d, abdominal pain, dysuria, hematuria. Denies additional complaints or concerns at this time. Vitals remain stable. H/H pre op: 13.6/41.2 , this morning 11.2/33.6, will continue to monitor. Review of Systems Review of Systems: As noted per HPI, 10 systems reviewed and negative unless noted above. Physical Exam Physical Exam: GENERAL: alert, obese, no distress, well nourished and well developed, sitting up in chair, pleasant, conversing easily, 2 shelter guards at bedside HEAD: Normocephalic, atraumatic EYES: PERRL, EOMI, Conjunctiva are pink and non-injected, sclera clear HEART: regular rate & rhythm, no murmurs and no gallops, no edema LUNGS: clear to auscultation bilaterally, no wheezing, rales or rhonchi ABDOMEN: obese abdomen, soft, non-tender, normal bowel sounds x 4 quadrants, no masses or organomegaly, no rebound or guarding, no CVA tenderness, no bladder distention identified and no bruits Extremities: Drain from surgical site continues to drain serosanguineous fluid, post op dressing in place, SCDS/TEDS b/l LE, trace edema b/l, moving feet and toes and good strength b/l, neurovascular intact b/l SKIN: skin color, texture, turgor are normal, no rashes or significant lesions NEURO: alert & oriented x 3 with fluent speech, no focal motor/sensory deficits : Talbot in place, deferred exam Results & Data Vital Signs (Past 12 Hours) Vital Signs Temp Pulse Resp BP Pulse Ox 09/11/18 07:23 36.5 C 79 18 127/80 98 09/11/18 04:19 36.8 C 68 18 119/70 94 09/10/18 23:36 37.4 C 80 20 122/79 96 Laboratory Results Short CBC 09/11/18 Range/Units 08:19 WBC 10.74 (4.8-10.8) K/uL Hgb 11.2 L (14.0-18.0) g/dL Hct 33.6 L (42-52) % Plt Count 234 (130-400) K/uL BMP 09/11/18 08:19 Sodium 139 Potassium 4.2 Chloride 107 Carbon Dioxide 26 BUN 17 Creatinine 1.02 Glucose 130 H Calcium 8.4 L
--- NOTE | 2018-09-11 12:04 | Orthopedic Progress Note ---
Date of Service September 11, 2018 Assessment & Plan (1) Status post right hip replacement: 53 yo male stable POD #1 s/p right UNRULY 1. Med management 2. DVT prophylaxis- ASA, SCDs 3. PT/OT 4. D/C planning- return to correctional facility Subjective Pt resting in bed, pain controlled, denies complaints Physical Exam Physical Exam: Toes mobile, N/V/I, dressing and drain in place Results & Data Vital Signs (Past 12 Hours) Vital Signs Temp Pulse Resp BP Pulse Ox 09/11/18 11:30 37.1 C 65 18 106/73 96 09/11/18 07:23 36.5 C 79 18 127/80 98 09/11/18 04:19 36.8 C 68 18 119/70 94 Laboratory Results 09/11/18 09/11/18 09/10/18 Range/Units 08:19 08:19 14:25 WBC 10.74 (4.8-10.8) K/uL RBC 3.80 L (4.7-6.1) M/uL Hgb 11.2 L (14.0-18.0) g/dL Hct 33.6 L (42-52) % MCV 88.4 (80-100) fL MCH 29.5 (25-34) pg MCHC 33.3 (32-36) g/dL RDW Std Deviation 44.7 (36.4-46.3) fL RDW Coeff of Miriam 13.7 (11.5-14.5) % Plt Count 234 (130-400) K/uL MPV 9.1 (7.4-10.4) fL Immature Gran % (Auto) 0.4 % Neut % (Auto) 61.9 % Lymph % (Auto) 18.9 % [place] % (Auto) 18.5 % Eos % (Auto) 0.2 % Baso % (Auto) 0.1 % Immature Gran # (Auto) 0.04 H (0.00-0.02) K/uL Neut # (Auto) 6.65 H (1.4-6.5) K/uL Lymph # (Auto) 2.03 (1.2-3.4) K/uL [place] # (Auto) 1.99 H (0.11-0.59) K/uL Eos # (Auto) 0.02 (0-0.5) K/uL Baso # (Auto) 0.01 (0-0.2) K/uL Sodium 139 (136-145) mmol/L Potassium 4.2 (3.5-5.1) mmol/L Chloride 107 (98-107) mmol/L Carbon Dioxide 26 (21-32) mmol/L Anion Gap 6.0 (3-11) BUN 17 (7-18) mg/dl Creatinine 1.02 (0.6-1.4) mg/dl Est Cr Clr Drug Dosing 113.4 ml/min Est GFR ( Amer) 96.8 Est GFR (Non-Af Amer) 83.5 BUN/Creatinine Ratio 16.3 (10-20) Glucose 130 H (70-99) mg/dl Calcium 8.4 L (8.5-10.1) mg/dl Nasal Screen MRSA (PCR) Negative (Negative) Hepatitis C Ab Screen (Neg) 09/10/18 Range/Units 05:47 WBC (4.8-10.8) K/uL RBC (4.7-6.1) M/uL Hgb (14.0-18.0) g/dL Hct (42-52) % MCV (80-100) fL MCH (25-34) pg MCHC (32-36) g/dL RDW Std Deviation (36.4-46.3) fL RDW Coeff of Miriam (11.5-14.5) % Plt Count (130-400) K/uL MPV (7.4-10.4) fL Immature Gran % (Auto) % Neut % (Auto) % Lymph % (Auto) % [place] % (Auto) % Eos % (Auto) % Baso % (Auto) % Immature Gran # (Auto) (0.00-0.02) K/uL Neut # (Auto) (1.4-6.5) K/uL Lymph # (Auto) (1.2-3.4) K/uL [place] # (Auto) (0.11-0.59) K/uL Eos # (Auto) (0-0.5) K/uL Baso # (Auto) (0-0.2) K/uL Sodium (136-145) mmol/L Potassium (3.5-5.1) mmol/L Chloride (98-107) mmol/L Carbon Dioxide (21-32) mmol/L Anion Gap (3-11) BUN (7-18) mg/dl Creatinine (0.6-1.4) mg/dl Est Cr Clr Drug Dosing ml/min Est GFR ( Amer) Est GFR (Non-Af Amer) BUN/Creatinine Ratio (10-20) Glucose (70-99) mg/dl Calcium (8.5-10.1) mg/dl Nasal Screen MRSA (PCR) (Negative) Hepatitis C Ab Screen Neg (Neg)
[2018-09-11] MEDS: SENNA 8.6 MG TAB PO SCH (20:41)
[2018-09-11] MEDS: MIRTAZAPINE TAB 15 MG TAB PO SCH (20:42)
[2018-09-12] MEDS: ACETAMINOPHEN 500 MG TAB PO SCH ×3 (05:34→21:30)
[2018-09-12] MEDS: OXYCODONE HCL IR 5 MG TAB (IMMEDIATE RELEASE) PO PRN ×4 (05:34→21:39)
[2018-09-12] MEDS: HYDROmorphone INJ 0.5 MG/0.5 ML SYR IV PRN ×2 (06:39→15:40)
[2018-09-12 06:56] LABS: Hemoglobin 9.3 g/dL (14.0-18.0); Mean Corpuscular Hgb Conc 33.2 g/dL (32-36); Mean Corpuscular Volume 89.2 fL (80-100); Mean Platelet Volume 8.9 fL (7.4-10.4); Platelet Count 189 K/uL (130-400); RDW Standard Deviation 45.7 fL (36.4-46.3); Red Blood Count 3.14 M/uL (4.7-6.1); White Blood Count 8.08 K/uL (4.8-10.8)
[2018-09-12 07:33] LABS: BUN Creatinine Ratio 18.3 (10-20); Calcium 8.4 mg/dl (8.5-10.1); Creatinine Clr Calc Pharmacy 113.4 ml/min; Est GFR (African American) 96.8; Est GFR (Non-African American) 83.5; Potassium 4.3 mmol/L (3.5-5.1)
[2018-09-12] MEDS: buPROPion HCl 75 MG TABLET PO SCH ×2 (08:08→21:30)
[2018-09-12] MEDS: ASPIRIN 81 MG ECTAB PO SCH ×2 (08:08→21:53)
[2018-09-12] MEDS: DOCUSATE SODIUM 100 MG CAP PO SCH ×2 (08:08→21:29)
[2018-09-12] MEDS: CETIRIZINE HCL 10 MG TABLET PO SCH (08:08)
[2018-09-12] MEDS: AMLODIPINE BESYLATE 5 MG TAB PO SCH (08:09)
[2018-09-12] MEDS: MULTIVITAMIN TAB PO SCH (08:09)
[2018-09-12] MEDS: ALLOPURINOL 300 MG TAB PO SCH (08:09)
[2018-09-12] MEDS: METOPROLOL TARTRATE 25 MG TAB PO SCH (08:09)
[2018-09-12] MEDS: LISINOPRIL 20 MG TAB PO SCH (08:10)
[2018-09-12] MEDS: ONDANSETRON INJ 2 MG/ML 2 ML VIAL IV PRN ×2 (12:10→21:39)
--- NOTE | 2018-09-12 13:35 | Progress Note ---
DATE: 09/12/2018 SUBJECTIVE: The patient is postop day 2 status post right total hip arthroplasty. Currently, he is sitting up in bed, awake, alert and oriented and he is eating lunch. He has no complaints. Pain is controlled. Denied shortness of breath, chest pain or lightheadedness and denies calf tenderness. OBJECTIVE: EXTREMITIES: His incision is clean, dry and intact. There is some mild ecchymosis noted in certain areas, but no overt drainage and no overt erythema. Thigh is mildly swollen, but soft and nontender. Calves were soft, nontender, neurovascularly intact. Toes were mobile and hip was located. ASSESSMENT: Postop day 2 status post right total hip arthroplasty. PLAN: The patient is continued on PT and OT protocols as well as continued on DVT prophylaxis and pain management. Plans will be for discharge back to his correctional facility and follow up with Dr. Lopez in 2 weeks.
[2018-09-12 18:37] LABS: Basophils # (auto) 0.03 K/uL (0-0.2); Basophils % (auto) 0.3 %; Hematocrit (blood only) 30.1 % (42-52); Hemoglobin 9.8 g/dL (14.0-18.0); Immature Granulocytes # (auto) 0.05 K/uL (0.00-0.02); Immature Granulocytes % (auto) 0.5 %; Lymphocytes # (auto) 2.21 K/uL (1.2-3.4); Lymphocytes % (auto) 22.4 %; Mean Corpuscular Hgb Conc 32.6 g/dL (32-36); Mean Corpuscular Volume 89.3 fL (80-100); Mean Platelet Volume 8.8 fL (7.4-10.4); Monocytes # (auto) 1.33 K/uL (0.11-0.59); Monocytes % (auto) 13.5 %; Neutrophils # (auto) 6.15 K/uL (1.4-6.5); Neutrophils % (auto) 62.3 %; Platelet Count 207 K/uL (130-400); RDW Standard Deviation 46.1 fL (36.4-46.3); Red Blood Count 3.37 M/uL (4.7-6.1); White Blood Count 9.87 K/uL (4.8-10.8)
[2018-09-12 18:49] LABS: BUN Creatinine Ratio 18.5 (10-20); Calcium 8.5 mg/dl (8.5-10.1); Creatinine Clr Calc Pharmacy 118.1 ml/min; Est GFR (African American) 101.6; Est GFR (Non-African American) 87.7; Potassium 4.5 mmol/L (3.5-5.1)
--- NOTE | 2018-09-12 20:55 | Hospitalist Progress Note ---
Date of Service September 12, 2018 Assessment & Plan (1) Postoperative fever: Uncertain etiology, not very high with Tm 100.4F but patient is feeling it. Ancef started per ortho today. Cont to monitor clinical progress and fever curve. (2) Osteoarthritis of right hip: POD #[address] John DELVALLE 50ml tolerated procedure well pain/wound per ortho activities and therapy as directed by ortho incentive spirometry drain removed yesterday and bandage changed today. (3) Hypertension: At goal-continue metoprolol, lisinopril, amlodipine (4) GERD (gastroesophageal reflux disease): continue ranitidine 300BID (5) Chronic back pain: Hold Nambumetone as this is an NSAID and may cause bleeding in the immediate post op period. He is using oxycodone, morphine and dilaudid PRN (6) Post traumatic stress disorder: continue wellbutrin, remeron mood stable (7) DVT prophylaxis: SCDS, TEDS, ASA BID per ortho Disposition: return to [facility]; PT needed temporarily Follow up: Provider at [facility] Subjective Patient spiked temperature this afternoon. He was slated to be discharged but stayed to monitor the fever.T-max is 100.4 F. Would consider blood cultures/CXR/UA overnight if his temp continues to climb. He currently reports postop pain in the site only which is not progressed. He denies any pain in his legs. He denies any respiratory symptoms including no cough or shortness of breath. Review of Systems Review of Systems: All systems reviewed & are unremarkable except as noted in HPI & below Physical Exam Physical Exam: CONSTITUTIONAL: WNWD, vitals as above, generally well- appearing EYES: normal conjunctivae, no scleral icterus ENT: MMM RESPIRATORY: clear to auscultation bilaterally, no crackles, rales or wheezes, normal respiratory effort CARDIOVASCULAR: regular rate and rhythm, S1 and 2 heard without murmurs, gallops or rubs, no JVD, no peripheral edema GASTROINTESTINAL: normal bowel sounds, soft, nontender, nondistended MUSCULOSKELETAL: R hip wound covered with bandage that is c/d/i. strength 5/5 throughout, head is normocephalic and atraumatic, neck supple, normal palpation of chest wall without tenderness SKIN: warm and dry, no rashes NEUROLOGIC: patellar 2+ bilat. no facial palsy, no dysarthria. CN 2-12 grossly intact, no sensory deficit, normal cognition, normal speech, no tremor. NVI PSYCHIATRIC: alert cooperative and oriented to person, place and time. Results & Data Vital Signs (Past 12 Hours) Vital Signs Temp Pulse Pulse Resp BP BP Pulse Ox 09/12/18 20:19 37.6 C H 09/12/18 19:43 37.8 C H 09/12/18 17:06 37.7 C H 09/12/18 17:02 38 C H 85 86 18 118/75 99/66 L 96 09/12/18 15:15 38 C H 86 18 118/75 96 Laboratory Results Short CBC 09/12/18 09/12/18 Range/Units 06:22 18:22 WBC 8.08 9.87 (4.8-10.8) K/uL Hgb 9.3 L 9.8 L (14.0-18.0) g/dL Hct 28.0 L 30.1 L (42-52) % Plt Count 189 207 (130-400) K/uL BMP 09/12/18 09/12/18 06:22 18:22 Sodium 142 140 Potassium 4.3 4.5 Chloride 109 H 107 Carbon Dioxide 29 29 BUN 19 H 18 Creatinine 1.02 0.98 Glucose 97 111 H Calcium 8.4 L 8.5 Medications Administered Current Inpatient Medications Acetaminophen (Tylenol) 1,000 mg PO Q8 COUNT INCLUDES THE [facility] Stop: 10/10/18 14:29 Last Admin: 09/12/18 14:04 Dose: 1,000 mg Documented by: Al Hydrox/Mg Hydrox/Simethicone (Maalox) 15 ml PO Q4H PRN PRN Reason: Heartburn Stop: 10/10/18 13:19 Allopurinol (Zyloprim) 300 mg PO DAILY JENNIFER Stop: 10/11/18 08:59 Last Admin: 09/12/18 08:09 Dose: Not Given Documented by: Amlodipine Besylate (Norvasc) 10 mg PO DAILY COUNT INCLUDES THE [facility] Stop: 10/11/18 08:59 Last Admin: 09/12/18 08:09 Dose: 10 mg Documented by: Aspirin (Ecotrin Ectab) 81 mg PO BID COUNT INCLUDES THE [facility] Stop: 10/10/18 20:59 Last Admin: 09/12/18 08:08 Dose: 81 mg Documented by: Bisacodyl (Dulcolax) 10 mg AK DAILY PRN PRN Reason: Constipation Stop: 10/10/18 13:19 Bupropion HCl (Wellbutrin) 150 mg PO BID JENNIFER Stop: 10/10/18 20:59 Last Admin: 09/12/18 08:08 Dose: 150 mg Documented by: Cetirizine HCl (Zyrtec) 10 mg PO DAILY JENNIFER Stop: 10/11/18 08:59 Last Admin: 09/12/18 08:08 Dose: 10 mg Documented by: Diphenhydramine HCl (Benadryl Capsule) 25 mg PO Q6H PRN PRN Reason: Itching Stop: 10/11/18 20:44 Last Admin: 09/12/18 19:02 Dose: 25 mg Documented by: Docusate Sodium (Colace) 100 mg PO BID JENNIFER Stop: 10/10/18 20:59 Last Admin: 09/12/18 08:08 Dose: 100 mg Documented by: Hydromorphone HCl (Dilaudid) 0.5 mg IV Q4H PRN PRN Reason: Pain Stop: 09/24/18 13:19 Last Admin: 09/12/18 15:40 Dose: 0.5 mg Documented by: Cefazolin Sodium (Ancef 2000mg) 2,000 mg in 15 mls @ 3.75 mls/min IV Q8H JENNIFER Stop: 09/14/18 18:59 Lisinopril (Zestril) 20 mg PO DAILY JENNIFER Stop: 10/11/18 08:59 Last Admin: 09/12/18 08:10 Dose: 20 mg Documented by: Magnesium Hydroxide (Milk Of Magnesia) 30 ml PO Q6H PRN PRN Reason: Constipation Stop: 10/10/18 13:19 Metoprolol Tartrate (Lopressor) 25 mg PO DAILY JENNIFER Stop: 10/11/18 08:59 Last Admin: 09/12/18 08:09 Dose: 25 mg Documented by: Mirtazapine (Remeron) 30 mg PO HS JENNIFER Stop: 10/10/18 20:59 Last Admin: 09/11/18 20:42 Dose: 30 mg Documented by: Multivitamins (Multivitamin Tab) 1 tab PO QAM JENNIFER Stop: 10/11/18 08:59 Last Admin: 09/12/18 08:09 Dose: 1 tab Documented by: Naloxone HCl (Narcan) 0.1 mg IV Q5M PRN PRN Reason: Oversedation/Resp Depression Stop: 10/10/18 13:19 Ondansetron HCl (Zofran) 4 mg IV Q6H PRN PRN Reason: Nausea And Vomiting Stop: 10/10/18 13:19 Last Admin: 09/12/18 12:10 Dose: 4 mg Documented by: Oxycodone HCl (Roxicodone Immediate Rel) 5 - 10 mg PO Q4H PRN PRN Reason: Pain Stop: 09/24/18 13:19 Last Admin: 09/12/18 17:08 Dose: 10 mg Documented by: Ranitidine HCl (Zantac) 300 mg PO BID COUNT INCLUDES THE [facility] Stop: 10/10/18 20:59 Last Admin: 09/12/18 08:09 Dose: 300 mg Documented by: Sennosides (Senokot) 17.2 mg PO HS COUNT INCLUDES THE [facility] Stop: 10/10/18 20:59 Last Admin: 09/11/18 20:41 Dose: 17.2 mg Documented by:
[2018-09-12] MEDS: SENNA 8.6 MG TAB PO SCH (21:30)
[2018-09-12] MEDS: MIRTAZAPINE TAB 15 MG TAB PO SCH (21:30)
[2018-09-12] MEDS: CEFAZOLIN 2000MG 2,000 MG/15 ML SYR IV SCH (21:35)
[2018-09-12 21:59] LABS: Appearance Urine Clear (Clear); Bilirubin Urine Negative (Negative); Blood Urine Negative (Negative); Color Urine Yellow; Glucose Urine UA Negative (Negative); Ketones Urine Negative (Negative); Leukocyte Esterase Urine Negative (Negative); Nitrite Urine Negative (Negative); Protein Urine Negative (Negative); Specific Gravity Urine 1.012 (1.000-1.030); Urobilinogen Urine Negative (Negative); pH Urine 5.5 (4.5-7.5)
[2018-09-13] MEDS: HYDROmorphone INJ 0.5 MG/0.5 ML SYR IV PRN ×2 (00:55→08:40)
[2018-09-13] MEDS: CEFAZOLIN 2000MG 2,000 MG/15 ML SYR IV SCH ×2 (03:31→11:00)
[2018-09-13] MEDS: OXYCODONE HCL IR 5 MG TAB (IMMEDIATE RELEASE) PO PRN ×3 (03:37→12:14)
[2018-09-13] MEDS: ONDANSETRON INJ 2 MG/ML 2 ML VIAL IV PRN (05:50)
[2018-09-13] MEDS: ACETAMINOPHEN 500 MG TAB PO SCH ×2 (05:50→14:25)
[2018-09-13 07:19] LABS: Hematocrit (blood only) 28.1 % (42-52); Hemoglobin 9.1 g/dL (14.0-18.0); Mean Corpuscular Hgb Conc 32.4 g/dL (32-36); Mean Corpuscular Volume 89.5 fL (80-100); Platelet Count 204 K/uL (130-400); RDW Standard Deviation 46.3 fL (36.4-46.3); Red Blood Count 3.14 M/uL (4.7-6.1); White Blood Count 8.44 K/uL (4.8-10.8)
[2018-09-13 07:47] LABS: BUN Creatinine Ratio 16.6 (10-20); Calcium 8.2 mg/dl (8.5-10.1); Creatinine Clr Calc Pharmacy 124.4 ml/min; Est GFR (African American) 108.2; Est GFR (Non-African American) 93.4; Potassium 4.3 mmol/L (3.5-5.1)
--- NOTE | 2018-09-13 08:02 | Orthopedic Progress Note ---
Date of Service September 13, 2018 Assessment & Plan (1) Status post right hip replacement: 53 yo male stable POD #3 s/p right UNRULY 1. DC held due to brief temp increase and pain in the hip. WBC wnl. Urine neg for bacteria. Remaining afebrile at this time. 2. DVT prophylaxis- ASA, SCDs 3. PT/OT 4. D/C planning- return to correctional facility, Plan for dc today. Subjective POD 3 s/p Right UNRULY Pt sitting up in bed. No complaints this AM. Pain controlled. Denies SOB,CP,LH. Physical Exam Physical Exam: Right hip incision with serous drainage noted as well from the drain site. No erythema. Swelling noted. Thigh swollen but soft. Calves soft,NT. NV intact. Results & Data Vital Signs (Past 12 Hours) Vital Signs Temp Pulse Resp BP Pulse Ox 09/13/18 06:59 37.4 C 83 17 129/86 95 09/12/18 23:16 36.9 C 76 16 101/64 95 09/12/18 20:19 37.6 C H
[2018-09-13] MEDS: ALLOPURINOL 300 MG TAB PO SCH (08:41)
[2018-09-13] MEDS: CETIRIZINE HCL 10 MG TABLET PO SCH (08:41)
[2018-09-13] MEDS: METOPROLOL TARTRATE 25 MG TAB PO SCH (08:42)
[2018-09-13] MEDS: ASPIRIN 81 MG ECTAB PO SCH (08:42)
[2018-09-13] MEDS: MULTIVITAMIN TAB PO SCH (08:42)
[2018-09-13] MEDS: buPROPion HCl 75 MG TABLET PO SCH (08:42)
[2018-09-13] MEDS: DOCUSATE SODIUM 100 MG CAP PO SCH (08:42)
[2018-09-13] MEDS: AMLODIPINE BESYLATE 5 MG TAB PO SCH (08:43)
[2018-09-13] MEDS: LISINOPRIL 20 MG TAB PO SCH (08:43)
--- NOTE | 2018-09-13 15:35 | Hospitalist Progress Note ---
Date of Service September 13, 2018 Assessment & Plan (1) Status post right hip replacement: POD#[address] Lopez. Pain control and wound care per Ortho. Cont IS. (2) Postoperative fever: Improved after some Ancef-he does have some blistering on his right side which he though may have been a reaction to the tape. I did not visualize the wound because it was just wrapped by Ortho who evaluated the wound. (3) Osteoarthritis of right hip: (4) Hypertension: At goal on current therapy. Cont lisinopril and amlodipine. (5) GERD (gastroesophageal reflux disease): Ranitidine 300 BID (6) Chronic back pain: Holding NSAIDs. Cont post-op pain control regimen. (7) Post traumatic stress disorder: Cont Welbutrin and Remeron (8) DVT prophylaxis: ASA BID Full Code Dispo- back to residential with Ortho follow-up in 1-2 weeks. Meme Cummings, DO [facility] Hospitalist Subjective Doing well, Tm 100.4 overnight. He is feeling better, although does report some post-op pain that is controlled with narcotics. He is tolerating PO and is hemodynamically stable. Lab work reviewed today and looks good. Review of Systems Review of Systems: All systems reviewed & are unremarkable except as noted in HPI & below Physical Exam Physical Exam: CONSTITUTIONAL: WNWD, vitals as above, generally well- appearing EYES: normal conjunctivae, no scleral icterus ENT: MMM RESPIRATORY: clear to auscultation bilaterally, no crackles, rales or wheezes, normal respiratory effort CARDIOVASCULAR: regular rate and rhythm, S1 and 2 heard without murmurs, gallops or rubs, no JVD, no peripheral edema GASTROINTESTINAL: normal bowel sounds, soft, nontender, nondistended MUSCULOSKELETAL: R hip wound covered with bandage that is c/d/i. strength 5/5 throughout, head is normocephalic and atraumatic, neck supple, normal palpation of chest wall without tenderness SKIN: warm and dry, no rashes NEUROLOGIC: patellar 2+ bilat. no facial palsy, no dysarthria. CN 2-12 grossly intact, no sensory deficit, normal cognition, normal speech, no tremor. PSYCHIATRIC: alert cooperative and oriented to person, place and time. Results & Data Vital Signs (Past 12 Hours) Vital Signs Temp Pulse Pulse Resp BP BP Pulse Ox 09/13/18 12:34 37.4 C 85 83 17 129/86 99/66 L 95 09/13/18 06:59 37.4 C 83 17 129/86 95 Laboratory Results Short CBC 09/12/18 09/13/18 Range/Units 18:22 06:54 WBC 9.87 8.44 (4.8-10.8) K/uL Hgb 9.8 L 9.1 L (14.0-18.0) g/dL Hct 30.1 L 28.1 L (42-52) % Plt Count 207 204 (130-400) K/uL BMP 09/12/18 09/13/18 18:22 06:54 Sodium 140 138 Potassium 4.5 4.3 Chloride 107 102 Carbon Dioxide 29 32 BUN 18 15 Creatinine 0.98 0.93 Glucose 111 H 117 H Calcium 8.5 8.2 L Urine 09/12/18 Range/Units 21:50 Urine Color Yellow Urine Appearance Clear (Clear) Urine pH 5.5 (4.5-7.5) Ur Specific Sachse 1.012 (1.000-1.030) Urine Protein Negative (Negative) Urine Glucose (UA) Negative (Negative) Medications Administered Current Inpatient Medications Acetaminophen (Tylenol) 1,000 mg PO Q8 [facility] Stop: 10/10/18 14:29 Last Admin: 09/13/18 14:25 Dose: 1,000 mg Documented by: Al Hydrox/Mg Hydrox/Simethicone (Maalox) 15 ml PO Q4H PRN PRN Reason: Heartburn Stop: 10/10/18 13:19 Allopurinol (Zyloprim) 300 mg PO DAILY JENNIFER Stop: 10/11/18 08:59 Last Admin: 09/13/18 08:41 Dose: Not Given Documented by: Amlodipine Besylate (Norvasc) 10 mg PO DAILY JENNIFER Stop: 10/11/18 08:59 Last Admin: 09/13/18 08:43 Dose: 10 mg Documented by: Aspirin (Ecotrin Ectab) 81 mg PO BID JENNIFER Stop: 10/10/18 20:59 Last Admin: 09/13/18 08:42 Dose: 81 mg Documented by: Bisacodyl (Dulcolax) 10 mg [place] DAILY PRN PRN Reason: Constipation Stop: 10/10/18 13:19 Bupropion HCl (Wellbutrin) 150 mg PO BID JENNIFER Stop: 10/10/18 20:59 Last Admin: 09/13/18 08:42 Dose: 150 mg Documented by: Cetirizine HCl (Zyrtec) 10 mg PO DAILY JENNIFER Stop: 10/11/18 08:59 Last Admin: 09/13/18 08:41 Dose: 10 mg Documented by: Diphenhydramine HCl (Benadryl Capsule) 25 mg PO Q6H PRN PRN Reason: Itching Stop: 10/11/18 20:44 Last Admin: 09/12/18 19:02 Dose: 25 mg Documented by: Docusate Sodium (Colace) 100 mg PO BID JENNIFER Stop: 10/10/18 20:59 Last Admin: 09/13/18 08:42 Dose: 100 mg Documented by: Hydromorphone HCl (Dilaudid) 0.5 mg IV Q4H PRN PRN Reason: Pain Stop: 09/24/18 13:19 Last Admin: 09/13/18 08:40 Dose: 0.5 mg Documented by: Cefazolin Sodium (Ancef 2000mg) 2,000 mg in 15 mls @ 3.75 mls/min IV Q8H JENNIFER Stop: 09/14/18 18:59 Last Admin: 09/13/18 11:00 Dose: 3.75 mls/min Documented by: Lisinopril (Zestril) 20 mg PO DAILY JENNIFER Stop: 10/11/18 08:59 Last Admin: 09/13/18 08:43 Dose: 20 mg Documented by: Magnesium Hydroxide (Milk Of Magnesia) 30 ml PO Q6H PRN PRN Reason: Constipation Stop: 10/10/18 13:19 Metoprolol Tartrate (Lopressor) 25 mg PO DAILY JENNIFER Stop: 10/11/18 08:59 Last Admin: 09/13/18 08:42 Dose: 25 mg Documented by: Mirtazapine (Remeron) 30 mg PO HS JENNIFER Stop: 10/10/18 20:59 Last Admin: 09/12/18 21:30 Dose: 30 mg Documented by: Multivitamins (Multivitamin Tab) 1 tab PO QAM JENNIFER Stop: 10/11/18 08:59 Last Admin: 09/13/18 08:42 Dose: 1 tab Documented by: Naloxone HCl (Narcan) 0.1 mg IV Q5M PRN PRN Reason: Oversedation/Resp Depression Stop: 10/10/18 13:19 Ondansetron HCl (Zofran) 4 mg IV Q6H PRN PRN Reason: Nausea And Vomiting Stop: 10/10/18 13:19 Last Admin: 09/13/18 05:50 Dose: 4 mg Documented by: Oxycodone HCl (Roxicodone Immediate Rel) 5 - 10 mg PO Q4H PRN PRN Reason: Pain Stop: 09/24/18 13:19 Last Admin: 09/13/18 12:14 Dose: 10 mg Documented by: Ranitidine HCl (Zantac) 300 mg PO BID JENNIFER Stop: 10/10/18 20:59 Last Admin: 09/13/18 08:41 Dose: 300 mg Documented by: Sennosides (Senokot) 17.2 mg PO HS JENNIFER Stop: 10/10/18 20:59 Last Admin: 09/12/18 21:30 Dose: 17.2 mg Documented by:
--- NOTE | 2018-09-19 13:45 | Discharge Summary ---
DISCHARGE DIAGNOSIS: Degenerative joint disease, right hip. SECONDARY DIAGNOSES: Hypertension, gastroesophageal reflux disease, chronic back pain, PTSD. CONSULTS: Carol Medellin PA-C and Elder Jackson M.D. COMPLICATIONS: None. PROCEDURES: Right total hip arthroplasty performed by Dr. Lopez on 09/10/2018. BRIEF HISTORY: As dictated in history and physical. HOSPITAL SUMMARY: The patient was admitted on the above-noted date and had the above-noted surgery performed, which he tolerated well. On his first postoperative day, he was resting in bed. Pain was controlled. He had no complaints. Toes were mobile. Neurovascularly intact. Dressings and drain were in place. Vital signs were stable. He was afebrile. Hemoglobin was 11.2 and he was started on physical therapy protocol and continued on DVT prophylaxis and pain management. Medical management was being performed by [facility] service. By his second postoperative day, he was awake and alert and oriented and was eating his lunch. He had no complaints. Pain was controlled. Denied shortness of breath, chest pain or lightheadedness. Denied calf tenderness. Incision was clean, dry and intact. There was some mild ecchymosis noted in certain areas, but no overt drainage and no overt erythema. Diet was mildly swollen but soft and nontender. Calves were soft, nontender, neurovascularly intact. Toes were mobile. Hip was located and he was continued on his PT and OT protocols. Plans were to have him discharged; however, he developed a low grade temperature and had some increased hip pain. At that point in time Ancef was restarted and a UA was drawn, which was negative. By his third postoperative day, he was remaining afebrile and vital signs were stable. He was sitting up in bed. He had no complaints. Pain was controlled and right hip incision had some serous drainage noted as well from the drain site but no erythema. Swelling was noted. Thigh was swollen but soft. Calves were soft, nontender, neurovascularly intact. He was remaining medically stable as well as orthopedically stable and it was felt he could be transferred back to the correctional facility. For further review, please see chart. LABORATORY AND X-RAY DATA: As per chart. DISCHARGE INSTRUCTIONS: [facility]. DIET: Regular. ACTIVITY: Weightbearing as tolerated on the right lower extremity with walker. Follow [facility] instruction sheets and special care instructions as noted. Follow up with Dr. Lopez in 2 weeks. The patient to call for appointment if one has not been made for you. DISCHARGE MEDICATIONS: Acetaminophen 1000 mg p.o. q. 8 hours, aspirin 81 mg p.o. b.i.d. for 30 days, cefadroxil 500 mg p.o. b.i.d. for 2 weeks, oxycodone 5 mg p.o. q. 4 hours p.r.n. Resume home meds as listed.
== END 2018-09-13 15:46 | DRG 470 ==
LOC: ASU 05:05 → 3W 10:22